=== PATIENT | female | born 1985 | race Caucasian/White ===

== ENCOUNTER 2020-05-21 19:54 | Observation (INO) | payer BC, OTHER ==
[~2020-05-21] VITALS: Ht 170 cm; Wt 63.2 kg
[2020-05-21 20:30] VITALS: BP 117/63
[2020-05-21] MEDS ORDERED: ONDANSETRON 4 MG/2 ML (SDV) Z0FRAN IVP PRN (20:30)
[2020-05-21] MEDS ORDERED: NS IV 1000 ML 1,000 ML IV SCH (20:30)
[2020-05-21 20:49] LABS: BASOPHILS % (AUTO) 0 % (0-10); EOSINOPHILS % (AUTO) 0 % (0-10); HEMATOCRIT 39 % (35-52); HEMOGLOBIN 12.7 g/dL (11.5-16.0); LYMPHOCYTES # (AUTO) 1.1 10^3/uL (1.0-4.0); LYMPHOCYTES % (AUTO) 15 % (12-44); MEAN CORPUSCULAR HEMOGLOBIN 29 pg (25-34); MEAN CORPUSCULAR HGB CONC 33 g/dL (32-36); MEAN CORPUSCULAR VOLUME 87 fL (80-99); MEAN PLATELET VOLUME 10.6 fL (9.0-12.2); MONOCYTES # (AUTO) 0.5 10^3/uL (0.0-1.0); MONOCYTES % (AUTO) 7 % (0-12); NEUTROPHILS % (AUTO) 78 % (42-75); PLATELET COUNT 244 10^3/uL (130-400); WHITE BLOOD COUNT 7.7 10^3/uL (4.3-11.0)
[2020-05-21 21:04] LABS: BUN/CREATININE RATIO 17; CALCIUM 9.2 MG/DL (8.5-10.1); CARBON DIOXIDE 20 MMOL/L (21-32); CHLORIDE 105 MMOL/L (98-107); CREATININE SERUM 0.82 MG/DL (0.60-1.30); GFR ESTIMATED > 60; GLUCOSE 90 MG/DL (70-105); POTASSIUM 3.9 MMOL/L (3.6-5.0); SODIUM 137 MMOL/L (135-145)
[2020-05-21] MEDS: NS IV 1000 ML 1,000 ML IV SCH (21:53)
[2020-05-22] VITALS: BP 103/56
[2020-05-22 04:00] VITALS: BP 110/62
[2020-05-22] MEDS: NS IV 1000 ML 1,000 ML IV SCH (05:26)
[2020-05-22 08:10] VITALS: BP 100/61
[2020-05-22] MEDS ORDERED: ACETAMINOPHEN 325 MG TABLET PO PRN (09:15)
[2020-05-22] MEDS ORDERED: ONDA4TAB11 PO (11:10)
--- NOTE | 2020-05-22 11:20 | Discharge Summary ---
Discharge Summary Hospital Course Was the Problem List Reviewed?: Yes Problems/Dx: (1) Nausea & vomiting Status: Acute Qualifiers: Qualified Codes: R11.2 - Nausea with vomiting, unspecified (2) Dehydration Status: Acute (3) Adverse effect of COVID-19 vaccine Status: Acute (4) Vomiting after vaccination Status: Acute Hospital Course Date of Admission: May 21, 2020 at 20:08 Admission Diagnosis: Intractable nausea and vomiting after COVID-19 vaccination Family Physician/Provider: No,Local Physician Date of Discharge: 05/22/20 Discharge Diagnosis: Intractable nausea and vomiting after COVID-19 vaccination Hospital Course: Smita Taylor is a 34-year-old female who presented with nausea and vomiting after COVID-19 vaccination. She was admitted with intractable nausea and vomiting and dehydration. She was given IV fluids and antiemetics and her symptoms improved. She was discharged home in stable condition. Labs and Pending Lab Test: Laboratory Tests 05/21/20 20:40: White Blood Count 7.7, Red Blood Count 4.46, Hemoglobin 12.7, Hematocrit 39, Mean Corpuscular Volume 87, Mean Corpuscular Hemoglobin 29, Mean Corpuscular Hemoglobin Concent 33, Red Cell Distribution Width 12.7, Platelet Count 244, Mean Platelet Volume 10.6, Immature Granulocyte % (Auto) 0, Neutrophils (%) (Auto) 78H, Lymphocytes (%) (Auto) 15, Monocytes (%) (Auto) 7, Eosinophils (%) (Auto) 0, Basophils (%) (Auto) 0, Neutrophils # (Auto) 6.0, Lymphocytes # (Auto) 1.1, Monocytes # (Auto) 0.5, Eosinophils # (Auto) 0.0, Basophils # (Auto) 0.0, Immature Granulocyte # (Auto) 0.0, Sodium Level 137, Potassium Level 3.9, Chloride Level 105, Carbon Dioxide Level 20L, Anion Gap 12, Blood Urea Nitrogen 14, Creatinine 0.82, Estimat Glomerular Filtration Rate > 60, BUN/Creatinine Ratio 17, Glucose Level 90, Calcium Level 9.2 Home Meds Active Ondansetron Odt (Ondansetron) 4 Mg Tab.rapdis 4 Mg PO Q6H PRN 7 Days Assessment/Pt Instructions Take medications as prescribed. Establish care with a primary care physician. Return with worsening nausea or vomiting or if you feel like you are getting worse. Discharge Planning: <30 minutes discharge planning Discharge Instructions Discharge Diet: No Restrictions Activity as Tolerated: Yes Discharge Physical Examination Vital Signs Vital Signs Date Time Temp Pulse Resp B/P (MAP) Pulse Ox O2 Delivery O2 Flow Rate FiO2 05/22/20 08:10 37.1 75 16 100/61 (74) 98 Room Air General Appearance: No Apparent Distress, WD/WN HEENT: PERRL/EOMI, Pharynx Normal Respiratory: Lungs Clear, Normal Breath Sounds, No Respiratory Distress Cardiovascular: Regular Rate, Rhythm, No Edema, No Murmur Gastrointestinal: Normal Bowel Sounds, Non Tender, Soft Extremity: Normal Inspection, Non Tender, No Pedal Edema Skin: Normal Color, Warm/Dry Neurologic/Psychiatric: Alert, Oriented x3, No Motor/Sensory Deficits, Normal Mood/Affect Allergies: Coded Allergies: No Known Drug Allergies (Unverified , 05/21/20) Discharge Summary Date of Admission May 21, 2020 at 20:08 Date of Discharge Discharge Date: May 22, 2020 Discharge Time: 11:15 Discharge Diagnosis (1) Nausea & vomiting Status: Acute Qualifiers: Qualified Codes: R11.2 - Nausea with vomiting, unspecified (2) Dehydration Status: Acute (3) Vomiting after vaccination Status: Acute (4) Adverse effect of COVID-19 vaccine Status: Acute TIARA DUBOSE MD May 22, 2020 11:20
[2020-05-22 11:44] VITALS: BP 100/61
== END 2020-05-22 11:10 | disposition home or self-care (01) ==
LOC: 4TH 20:08 → UNDOADMOB 20:08 → 4TH 20:20 → UNDODISOB 05-22 11:47
PROVIDERS: ADMIT Internal Medicine; ATTEND Internal Medicine
DX: T88.1XXA Other complications following immunization, not elsewhere classified, initial encounter (principal); R11.2 Nausea with vomiting, unspecified; E86.0 Dehydration; Z79.899 Other long term (current) drug therapy
CPT/HCPCS: 80048; 85025; G0378; G0379; 36415; 99211

== ENCOUNTER → 2021-06-20 | Outpatient (CLI) | payer BC ==
[~2021-06-20] MED LIST: ONDA4TAB11 PO
--- NOTE | 2021-06-20 16:35 | Diagnostic Imaging Report ---
PROCEDURE: Pelvic comp/transvaginal sonogram. TECHNIQUE: Complete transabdominal and transvaginal pelvic ultrasound was performed. In addition, limited pelvic Doppler was performed. INDICATION: Evaluate IUD. FINDINGS: The uterus is retroverted measuring 7.4 x 4.9 x 6.3 cm. The endometrium is 4 mm in thickness. The IUD appears to be appropriately centered in the endometrial canal. No myometrial mass is detected. The right ovary measures 3.5 x 1.9 x 2.2 cm and the left ovary measures 4.4 x 1.5 x 2.7 cm. The ovaries contain multiple follicles. The left ovary does contain an approximately 17 mm follicle. Both ovaries demonstrate blood flow. No adnexal mass or free fluid is detected. IMPRESSION: The IUD is appropriately centered in the endometrial canal. No significant abnormality is detected. Dictated by: Dictated on workstation # [id number]
== END ==
LOC: RAD 12:43
PROVIDERS: ATTEND Obstetrics & Gynecology
DX: Z30.431 Encounter for routine checking of intrauterine contraceptive device (principal)
CPT/HCPCS: 76830; 76856